=== PATIENT | female | born 1985 | race Caucasian/White ===

== ENCOUNTER 2022-10-14 05:29 | Emergency (ER) | payer OTHER ==
--- NOTE | 2022-10-14 06:07 | ED Physician Documentation ---
PD HPI CHEST PAIN - Stated complaint Stated Complaint: CHEST PX - Chief complaint Chief Complaint: Cardiac - History obtained from History obtained from: Patient - Additional information Additional information: 37-year-old woman with past medical history ibs, depression and anxiety p/w migratory cp intermittent over past few days. denies fever, soa, nausea, leg swelling, orthopnea. perc negative. nonsmoker with no FH PR. Review of Systems Constitutional: denies: Fever Cardiac: reports: Chest pain / pressure, Palpitations Respiratory: denies: Dyspnea PD ED PE NORMAL - Vitals Vital signs reviewed: Yes - General General: Alert and oriented X 3, No acute distress, Well developed/nourished - HEENT HEENT: Atraumatic, PERRL, EOMI - Neck Neck: Supple, no meningeal sign - Cardiac Cardiac: RRR - Respiratory Respiratory: No respiratory distress, Clear bilaterally - Abdomen Abdomen: Non tender, Non distended Results - Vitals Vitals: Vital Signs - 24 hr 10/14/22 05:42 Temperature 35.8 C L Heart Rate 99 Respiratory 24 Rate Blood Pressure 146/81 H O2 Saturation 99 Oxygen O2 Source Room air PD Medical Decision Making - ED course ED course: 37-year-old woman presents with atypical chest pain. PERC negative. Heart score 0. EKG done at 053 983 rate. Normal sinus rhythm with normal intervals, no ST changes. Lab work performed including CBC, abdominal panel, troponin, unremarkable. Chest x-ray independently interpreted by myself and outside radiologist as no evidence of cardiopulmonary disease. Discussed with patient and return precautions were provided. Plan to follow-up with primary care provider. Departure - Departure Clinical Impression: Chest pain Condition: Good Instructions: ED Chest Pain NonCardiac Comments: You are seen in the in the emergency department for evaluation of chest pain. Your EKG, lab work, chest x-ray, and physical exam are unremarkable. Please follow-up with your primary care provider. Return to the emergency department for new or worsening symptoms or other concerns.
[2022-10-14 06:17] LABS: BASOPHILS % (AUTO) 0.4 %; EOSINOPHILS # (AUTO) 0.3 10^3/uL (0.0-0.7); EOSINOPHILS % (AUTO) 3.2 %; HCT - HEMATOCRIT 37.8 % (37.0-47.0); HGB - HEMOGLOBIN 12.4 g/dL (12.0-16.0); LYMPHOCYTES # (AUTO) 2.4 10^3/uL (1.5-3.5); LYMPHOCYTES % (AUTO) 31.6 %; MEAN CORPUSCULAR HEMOGLOBIN 29.7 pg (27.0-31.0); MEAN CORPUSCULAR HGB CONC 32.8 g/dL (32.0-36.0); MEAN CORPUSCULAR VOLUME 90.6 fL (81.0-99.0); MEAN PLATELET VOLUME 10.4 fL (7.9-10.8); MONOCYTES # (AUTO) 0.5 10^3/uL (0.0-1.0); MONOCYTES % (AUTO) 6.1 %; NEUTROPHILS # (AUTO) 4.5 10^3/uL (1.5-6.6); NEUTROPHILS % (AUTO) 58.6 %; PLT - PLATELET COUNT 237 10^3/uL (130-450); RED BLOOD COUNT 4.17 10^6/uL (4.20-5.40); RED CELL DISTRIBUTION WIDTH 12.7 % (12.0-15.0); WHITE BLOOD COUNT 7.7 x10^3/uL (4.8-10.8)
[2022-10-14 06:30] LABS: ALBUMIN 3.7 g/dL (3.2-5.5); ALBUMIN/GLOBULIN RATIO 1.2 (1.0-2.2); BILIRUBIN,TOTAL 0.5 mg/dL (0.2-1.0); CALCIUM 8.7 mg/dL (8.5-10.3); CREATININE 0.9 mg/dL (0.4-1.0); POTASSIUM 3.6 mmol/L (3.5-5.0); TOTAL PROTEIN 6.8 g/dL (6.7-8.2)
[2022-10-14 07:08] VITALS: BP 137/79
--- NOTE | 2022-10-14 07:47 | XRAY Report ---
PROCEDURE: Chest 1 View X-Ray INDICATIONS: Chest Pain TECHNIQUE: One view of the chest was acquired. COMPARISON: 09/07/2021 FINDINGS: Surgical changes and devices: None. Lungs and pleura: No pleural effusions or pneumothorax. Lungs are clear. Mediastinum: Mediastinal contours appear normal. Heart size is normal. Bones and chest wall: No suspicious bony lesions. Overlying soft tissues appear unremarkable. IMPRESSION: No acute cardiopulmonary process. Findings are concordant with preliminary interpretation provided by [facility]. Reviewed by: Floyd Seymour MD on 10/14/2022 7:46 AM PDT Approved by: Floyd Seymour MD on 10/14/2022 7:46 AM PDT Station ID: [id number]
== END 2022-10-14 07:08 | disposition home or self-care (01) ==
LOC: ED 05:29
DX: R07.89 Other chest pain (principal)
CPT/HCPCS: 36415; 80053; 83690; 84484; 85025; 93005; 99283; 99284